=== PATIENT | female | born 1960 | race Caucasian/White ===

== ENCOUNTER 2018-06-03 11:37 | Emergency (ER) | payer MEDICARE, MEDICAID ==
[2018-06-03] MEDS ORDERED: ONDANSETRON HCL 4 MG/2 ML SOL IV ONE (11:57)
[2018-06-03] MEDS ORDERED: ONDANSETRON HCL 4 MG/2 ML SOL ONE (12:00)
[2018-06-03 12:02] LABS: BASOPHILS % (AUTO) 1 % (0-3); EOSINOPHILS % (AUTO) 1 % (0-9); HEMATOCRIT 42 % (35-47); HEMOGLOBIN 13.9 gm/dl (12.0-15.5); LYMPHOCYTES % (AUTO) 22.5 % (10-50); MEAN CORPUSCULAR HEMOGLOBIN 30.7 pg (27.0-32.0); MEAN CORPUSCULAR HGB CONC 32.8 gm/dl (32.0-36.0); MEAN CORPUSCULAR VOLUME 94 fL (81-99); NEUTROPHILS % (AUTO) 71.4 % (37-80)
[2018-06-03] MEDS ORDERED: SODIUM CHLORIDE 0.9% 1000ML 1,000 ML IV ONE (12:28)
[2018-06-03] MEDS ORDERED: PROCHLORPERAZINE EDISYLATE 5 MG/ML SOL IV ONE (12:28)
[2018-06-03] MEDS ORDERED: HYDROMORPHONE HCL 2 MG/ML SOL IV ONE (12:29)
[2018-06-03] MEDS ORDERED: HYDROMORPHONE 1 MG/ML SYRINGE ONE (12:31)
[2018-06-03] MEDS ORDERED: PROCHLORPERAZINE EDISYLATE 5 MG/ML SOL ONE (12:31)
[2018-06-03 12:42] LABS: ALBUMIN 3.1 gm/dl (3.4-5.0); BILIRUBIN,TOTAL 0.4 mg/dl (0.2-1.0); CALCIUM 8.6 mg/dl (8.5-10.1); CARBON DIOXIDE 31.1 mEq/L (21-32); CREATININE 0.66 mg/dl (0.60-1.00); CRP INFLAMMATORY 1.07 mg/dl (0.00-0.33); POTASSIUM 4.2 mMol/L (3.5-5.1); TOTAL PROTEIN 7.2 gm/dl (6.4-8.2)
[2018-06-03 13:01] VITALS: RESP 18; TEMP 97.9
[2018-06-03 13:37] VITALS: O2SAT 99
[2018-06-03 14:40] VITALS: BP 165/135; PULSE 79
== END 2018-06-03 14:26 | disposition home or self-care (01) | DRG 392 ==
LOC: ED 11:37
DX: R11.2 Nausea with vomiting, unspecified (principal); T81.49XA Infection following a procedure, other surgical site, initial encounter; B96.89 Other specified bacterial agents as the cause of diseases classified elsewhere
CPT/HCPCS: 80053; 85025; 87070; 87077; 87186; 96365; 96374; 96375; 99283; 99285; J0780; J2405; A6402; J1170

== ENCOUNTER 2018-08-01 09:57 | Emergency (ER) | payer MEDICARE, MEDICAID ==
[2018-08-01 10:24] VITALS: BP 88/58; PULSE 70; RESP 16; TEMP 97.4; O2SAT 98
== END 2018-08-01 10:58 | disposition home or self-care (01) | DRG 395 ==
LOC: ED 09:57
DX: K43.9 Ventral hernia without obstruction or gangrene (principal)
CPT/HCPCS: 99282

== ENCOUNTER 2019-01-31 12:02 | Emergency (ER) | payer MEDICARE, MEDICAID ==
[2019-01-31] MEDS ORDERED: HYDROMORPHONE HCL 2 MG/ML SOL IM ONE ×2 (13:19→14:43)
[2019-01-31] MEDS ORDERED: HYDROMORPHONE 1 MG/ML SYRINGE ONE ×2 (13:22→18:36)
[2019-01-31] MEDS ORDERED: SODIUM CHLORIDE 0.9% 50 ML 25 ML IV PRN (13:32)
[2019-01-31 13:41] LABS: HEMATOCRIT 47 % (35-47); HEMOGLOBIN 15.2 gm/dl (12.0-15.5); MEAN CORPUSCULAR HGB CONC 32.4 gm/dl (32.0-36.0); MEAN CORPUSCULAR VOLUME 93 fL (81-99)
[2019-01-31 13:48] LABS: ALBUMIN 3.4 gm/dl (3.4-5.0); BILIRUBIN,TOTAL 0.2 mg/dl (0.2-1.0); CALCIUM 9.4 mg/dl (8.5-10.1); CREATININE 0.8 mg/dl (0.60-1.00); TOTAL PROTEIN 7.9 gm/dl (6.4-8.2)
[2019-01-31 14:00] LABS: BAND NEUTROPHILS % (MANUAL) 5 %; BASOPHILS % (MANUAL) 1 % (0-3); EOSINOPHILS % (MANUAL) 0 % (0-9); LYMPHOCYTES % (MANUAL) 14 % (10-50); MONOCYTES % (MANUAL) 4 % (0-12); NEUTROPHILS % (MANUAL) 76 % (37-80); NORMAL RBCS PRESENT
[2019-01-31 14:30] LABS: APPEARANCE,URINE Slightly Cloudy; BILIRUBIN,URINE NEGATIVE (NEGATIVE); COLOR,URINE Yellow; GLUCOSE, URINE (UA) NEGATIVE (NEGATIVE); KETONES,URINE NEGATIVE (NEGATIVE); LEUKOCYTE ESTERASE ,URINE NEGATIVE (NEGATIVE); NITRATE,URINE NEGATIVE (NEGATIVE); OCCULT BLOOD,URINE NEGATIVE (NEG-TRACE); PH,URINE 7.5; UROBILINOGEN,URINE 0.2 (0.2-1.0 EU)
[2019-01-31] MEDS ORDERED: TETRACAINE HCL 0.5 % 1 DROP SOL ONE (14:41)
[2019-01-31] MEDS ORDERED: LIDOCAINE HCL 1% MPF 30 SOL ONE (14:41)
[2019-01-31] MEDS ORDERED: EPINEPHRINE 1:10,000 PREFILL 0.1 MG/ML SOL ONE (14:42)
[2019-01-31 14:46] LABS: CRYSTALS NEGATIVE (0-3 AVE/HPF); EPITHELIAL CELLS 0-3 (SQUAMOUS); RBC,URINE NEG (0-3AV/HPF); WBC,URINE 0-1 (0-5AV/HPF)
[2019-01-31 14:47] LABS: BACTERIA NEGATIVE (< 1+)
[2019-01-31] MEDS ORDERED: EPINEPHRINE 1:1000 AMP 1 MG/ML SOL TOP PRN (14:52)
[2019-01-31] MEDS ORDERED: LIDOCAINE HCL 2% (VISCOUS) 15 ML SOL ONE ×2 (14:54)
[2019-01-31] MEDS ORDERED: TETRACAINE HCL 1% SOL IJ PRN (14:55)
[2019-01-31] MEDS ORDERED: LIDOCAINE HCL 2% (VISCOUS) 15 ML SOL MT ONE (15:06)
[2019-01-31] MEDS ORDERED: SODIUM CHLORIDE 0.9% 1000ML 1,000 ML IV SCH (18:00)
[2019-01-31 18:34] VITALS: RESP 18
[2019-01-31] MEDS ORDERED: ONDANSETRON HCL 4 MG/2 ML SOL ONE (18:36)
[2019-01-31] MEDS ORDERED: HYDROMORPHONE HCL 2 MG/ML SOL IV ONE (18:37)
[2019-01-31] MEDS ORDERED: ONDANSETRON HCL 4 MG/2 ML SOL IV ONE (18:37)
[2019-01-31 18:56] VITALS: BP 136/88; PULSE 88; TEMP 97.8; O2SAT 97
== END 2019-01-31 19:15 | disposition short-term general hospital (02) | DRG 390 ==
LOC: ED 12:02
DX: K56.609 Unspecified intestinal obstruction, unspecified as to partial versus complete obstruction (principal); K43.9 Ventral hernia without obstruction or gangrene; E66.01 Morbid (severe) obesity due to excess calories; R11.0 Nausea
CPT/HCPCS: 36415; 74018; 74150; 74176; 80053; 81001; 85007; 85027; 96365; 96372; 96374; 96375; 99284; 99285; J2405; A9270-GY; J1170; J2001

== ENCOUNTER 2019-03-10 08:30 | Emergency (ER) | payer MEDICARE, MEDICAID | END 2019-03-10 13:38 | disposition short-term general hospital (02) | LOC: ED 08:30 ==